=== PATIENT | female | born 1960 | race Caucasian/White ===

== ENCOUNTER 2017-10-12 06:14 | Emergency (ER) | payer OTHER ==
[~2017-10-12] VITALS: Ht 160 cm; Wt 63.2 kg
[2017-10-12 07:16] LABS: HEMATOCRIT 41.9 % (36.0-46.0); HEMOGLOBIN 14.1 G/DL (11.9-15.5); MCH 30.7 PG (29.0-34.0); MCHC 33.7 G/DL (30.0-36.0); MCV 91.1 FL (83-99); PLATELET COUNT 146 K/uL (156-360); RBC DIS.WIDTH-CV 13.1 % (11.8-14.6); RBC DIS.WIDTH-SD 43.7 % (39-53)
[2017-10-12 07:36] LABS: APPEARANCE SL.HAZY ((CLEAR)); BILIRUBIN NEGATIVE; BLOOD NEGATIVE; COLOR YELLOW ((YELLOW)); GLUCOSE (STRIP) NEGATIVE; KETONES NEGATIVE; LEUKOCYTES MODERATE; NITRITE NEGATIVE; PROTEIN (STRIP) 30; SPECIFIC GRAVITY 1.028 (1.000-1.030); UROBILINOGEN 0.2 MG/DL (0.2-1.0)
[2017-10-12 07:43] LABS: CHLORIDE 106 mEq/L (99-109); POTASSIUM 3.9 mEq/L (3.7-5.4); SODIUM 138 mEq/L (136-147)
[2017-10-12 07:45] LABS: GLUCOSE 130 mg/dL (70-99)
[2017-10-12 07:48] LABS: BACTERIA RARE /HPF; EPITHELIAL CELLS RARE /HPF; HYALINE CASTS 0-5 /LPF; MUCUS TRACE /LPF; UCUL ADDED? YES; WHITE BLOOD CELLS 15-20 /HPF (0-5)
[2017-10-12 07:49] LABS: CREATININE 0.8 mg/dL (0.6-1.3); GFR ESTIMATE (CALCULATED) > 59 mL/min/
[2017-10-12 07:50] LABS: UREA NITROGEN (BUN) 11 mg/dL (9-23)
[2017-10-12] MEDS ORDERED: MIRALAX17 GM PO (09:55)
[2017-10-12] MEDS ORDERED: BACTRIM,SEPT1 TABLET PO (09:55)
[2017-10-12] MEDS ORDERED: PERCOCET 5/31 TABLET PO (09:55)
[2017-10-12 10:14] VITALS: BP 118/70
== END 2017-10-12 10:14 | disposition home or self-care (01) ==
LOC: EME 06:14
DX: N39.0 Urinary tract infection, site not specified (principal); K59.00 Constipation, unspecified; B96.89 Other specified bacterial agents as the cause of diseases classified elsewhere; Z90.710 Acquired absence of both cervix and uterus
CPT/HCPCS: 74176; 80048; 81003; 85027; 87086; 99281; 99284; J1885; J2270; J2405; J7030